=== PATIENT | male | born 1935 | race Caucasian/White ===

== ENCOUNTER 2016-12-26 19:32 | Inpatient (IN) | payer SELFPAY ==
[~2016-12-26] VITALS: Ht 162.6 cm; Wt 104.3 kg
[2016-12-26 19:39] VITALS: BP 132/56
[2016-12-26] MEDS ORDERED: ASPI325T49 PO (19:43)
[2016-12-26] MEDS ORDERED: LISI5TAB18 PO (19:43)
[2016-12-26] MEDS ORDERED: TERA1CAP7 PO (19:43)
--- NOTE | 2016-12-26 19:48 | NUR ---
AMBUATED TO ER BED 6
--- NOTE | 2016-12-26 20:00 | NUR ---
Patient being evaluated by DR. KAY at bedside.
[2016-12-26] MEDS ORDERED: FUROSEMIDE 40 MG/4 ML VIAL IVP SCH (20:10)
--- NOTE | 2016-12-26 20:32 | NUR ---
81Y/M PT. PRESENTS TO ED WITH C/O SOB WITH BLE SWOLLEN. HX. HTN . DENIES N/V/D; SKIN IS PINK/WARM/DRY; AAOX4 WITH EVEN AND STEADY GAIT; LUNGS CLEAR BL; HR EVEN AND REGULAR; PT DENIES ANY FEVER, SOB, OR COUGH AT THIS TIME; C/O CP, PATIENT STATES PAIN OF 7/10 AT THIS TIME; VSS; PATIENT POSITIONED FOR COMFORT; HOB ELEVATED; BEDRAILS UP X2; BED DOWN. ER MD MADE AWARE OF PT STATUS.
[2016-12-26 20:47] LABS: BASOPHILS # (AUTO) 0.4 K/uL (0.00-0.22); EOSINOPHILS # (AUTO) 0.1 K/uL (0-0.4); HEMATOCRIT 42.3 % (36-52); HEMOGLOBIN 14.1 g/dL (12.0-18.0); LYMPHOCYTES # (AUTO) 1.5 K/uL (2.0-11.5); MEAN CORPUSCULAR HEMOGLOBIN 32 pg (27-31); MEAN CORPUSCULAR HGB CONC 33 g/dL (33-37); MEAN CORPUSCULAR VOLUME 96 fL (80-94); MONOCYTES # (AUTO) 0.7 K/uL (0.8-1.0); NEUTROPHILS # (AUTO) 3.5 K/uL (1.8-7.7); PLATELET COUNT (AUTO) 192 K/uL (140-450); RED BLOOD CELL COUNT(AUTO) 4.42 MIL/uL (4.20-6.10); RED CELL DISTRIBUTION WIDTH 12.9 % (11.6-13.7); WHITE BLOOD COUNT (AUTO) 6.2 K/uL (4.8-10.8)
[2016-12-26 21:04] LABS: ANION GAP 11.2 (8-16); CARBON DIOXIDE 28.4 mmol/L (21-32); CHLORIDE 105 mmol/L (98-107); CREATININE 1.2 mg/dL (0.7-1.3); GLUCOSE 116 mg/dL (74-106); POTASSIUM 4.6 mmol/L (3.5-5.1); SODIUM SERUM 140 mmol/L (136-145); UREA NITROGEN, BLOOD 19 mg/dL (7-18)
[2016-12-26 21:11] LABS: ALBUMIN 3.5 g/dL (3.4-5.0); ASPARTATE AMINOTRANSFERASE 21 U/L (15-37); TOTAL BILIRUBIN 0.4 mg/dL (0.0-1.0)
[2016-12-26 22:11] LABS: CREATINE KINASE MB 0.7 ng/mL (0-3.6)
[2016-12-26] MEDS: NACL 0.9% 1,000 ML IV SCH (22:29)
[2016-12-26] MEDS ORDERED: HYDROcodone/APAP 7.5/325 MG 1 TAB PO PRN (22:30)
[2016-12-26] MEDS: TERAZOSIN 1 MG CAP PO SCH (22:30)
[2016-12-26] MEDS ORDERED: DOCUSATE SODIUM 100 MG GELCAP PO PRN (22:30)
[2016-12-26] MEDS ORDERED: LISINOPRIL 5 MG TAB PO SCH (22:30)
[2016-12-26] MEDS ORDERED: ACETAMINOPHEN 325 MG TAB PO PRN (22:30)
[2016-12-26] MEDS ORDERED: MORPHINE SULFATE 2 MG/ML SYR IVP PRN (22:30)
[2016-12-26] MEDS ORDERED: ONDANSETRON 4 MG/2 ML VIAL IM/IVP PRN (22:30)
--- NOTE | 2016-12-26 22:30 | NUR ---
Patient appears to be resting comfortably in bed. Vital Signs within normal limits. Respirations even and unlabored.
[2016-12-26 23:15] LABS: CHOL/HDL RATIO 4.9 (1-4.5); FREE T4 (FREE THYROXINE) 0.92 ng/dL (0.76-1.46); MAGNESIUM 1.9 mg/dL (1.8-2.4); PHOSPHORUS 3.4 mg/dL (2.5-4.9); THYROID STIMULATING HORMONE 2.15 uIU/mL (0.34-3.74)
--- NOTE | 2016-12-26 23:15 | NUR ---
Patient will be admitted to care of DR. VEGA. Admited to TELEMETRY. Will go to [id number]. Belongings list completed. Report to ISAIAS.
--- NOTE | 2016-12-26 23:44 | NUR ---
Admitted from , with chief complaint of SOB, EDEMA LOWER EXTREMITIES 81 y/o ,Male, Appropriate, oriented to call light, bed, phone,television, bathroom, smoking policy, visiting hours, procedures, ID bracelet on. Belongings list checked. PER DAUGHTER AT TIMES HIS FATHER GO TO THE BATHROOM FREQUENTLY. PT AAO AWAKE AT THIS TIME, COOPERATIVE.
[2016-12-26 23:45] LABS: PROTHROMBIN TIME 10.4 secs (10.8-13.4)
[2016-12-26 23:52] VITALS: BP 150/75
--- NOTE | 2016-12-27 00:44 | NUR ---
TALKED TO DR. MEDINA ABOUT SEQUENTIAL SINCE PT HAS EDEMA PER DR. MEDINA PUT SEQUENTIAL BUT MAKE IT LOOSE, SEQUENTIAL IN PLACE AT THIS TIME, PER PT WELL TOLERATED AT THIS TIME, WILL CONTINUE TO OBSERVE
--- NOTE | 2016-12-27 00:50 | NUR ---
NOTED ALSO PURPLISH DISCOLORATION ON LEFT ARM, HANDLE PT GENTLY
--- NOTE | 2016-12-27 01:07 | NUR ---
PER PT ONLY WANT TYLENOL FOR PAIN EVEN PAIN LEVEL 6
--- NOTE | 2016-12-27 01:07 | NUR ---
TALKED WITH DR. MEDINA AND VERIFY THE IVF PER MD JUST [id number]
--- NOTE | 2016-12-27 02:24 | NUR ---
PT SLEEPING AT THIS TIME, DAUGHTER AT BEDSIDE, IVF WELL TOLERATED, NO SOB NOTED.
[2016-12-27] MEDS ORDERED: ALBUTEROL SULFATE/IPRATROPIU 3 ML SOL IH PRN ×2 (03:10→15:50)
[2016-12-27 04:35] VITALS: BP 122/66
--- NOTE | 2016-12-27 04:40 | NUR ---
PT SLEEPING AT THIS TIME, VITAL SIGN STABLE, NO SOB NOTED, DAUGHTER AT BEDSIDE
--- NOTE | 2016-12-27 05:49 | NUR ---
PT SITTING IN BED JUST CAME BACK FROM BATHROOM, PER DAUGHTER SHE FORGOT THAT HE NEED TO GIVE URINE, URINE CUP AT BEDSIDE, WILL COLLECT LATER, NO SOB NOTED.
[2016-12-27 07:22] LABS: HEMATOCRIT 40.6 % (36-52); HEMOGLOBIN 13.5 g/dL (12.0-18.0); MEAN CORPUSCULAR HEMOGLOBIN 32 pg (27-31); MEAN CORPUSCULAR HGB CONC 33 g/dL (33-37); MEAN CORPUSCULAR VOLUME 97 fL (80-94); PLATELET COUNT (AUTO) 173 K/uL (140-450); RED BLOOD CELL COUNT(AUTO) 4.19 MIL/uL (4.20-6.10); RED CELL DISTRIBUTION WIDTH 13.1 % (11.6-13.7); WHITE BLOOD COUNT (AUTO) 5.2 K/uL (4.8-10.8)
--- NOTE | 2016-12-27 07:23 | NUR ---
ENDORSED TO NADIA PT AAO, SITTING IN BED, DAUGHTER AT BEDSIDE,IVF ONGOING WELL TOLERATED, ASKED IF HE CAN GIVEN URINE AT THIS TIME,PER PT HE WILL TRY
--- NOTE | 2016-12-27 07:24 | NUR ---
RECEIVED REPORT FROM SKILLS INSTRUCTOR NURSE AT BEDSIDE FOR CONTINUITY OF CARE. PT IS AWAKE AND ORIENTED. PT'S DAUGHTER IS AT BEDSIDE. INTRODUCED SELF AND UPDATED BOARD. WILL CONTINUE WITH PLAN OF CARE AND MONITOR PT.
[2016-12-27 07:37] LABS: ANION GAP 12.5 (8-16); CARBON DIOXIDE 26.9 mmol/L (21-32); CHLORIDE 107 mmol/L (98-107); CREATININE 1.1 mg/dL (0.7-1.3); GLUCOSE 121 mg/dL (74-106); POTASSIUM 4.4 mmol/L (3.5-5.1); SODIUM SERUM 142 mmol/L (136-145); UREA NITROGEN, BLOOD 22 mg/dL (7-18)
[2016-12-27 08:00] VITALS: BP 126/58
[2016-12-27 08:10] LABS: APPEARANCE,URINE CLEAR (CLEAR); BILIRUBIN,URINE NEGATIVE (NEGATIVE); BLOOD, URINE NEGATIVE (NEGATIVE); COLOR,URINE YELLOW (YELLOW); LEUKOCYTE ESTERASE ,URINE NEGATIVE (NEGATIVE); NITRITE, URINE NEGATIVE (NEGATIVE); UGLUCOSE NEGATIVE (NEGATIVE)
[2016-12-27 08:20] LABS: RBC,URINE 0-5 (RARE) /HPF (0-5); WBC,URINE 0-5 (RARE) /HPF (0-5)
[2016-12-27 08:38] LABS: EOSINOPHILS % (MANUAL) 6 % (0-4); LYMPHOCYTES % (MANUAL) 30 % (20-46); MONOCYTES % (MANUAL) 9 % (5-12)
[2016-12-27] MEDS: TERAZOSIN 1 MG CAP PO SCH (11:45)
--- NOTE | 2016-12-27 11:45 | NUR ---
ADMINISTERED SCHEDULED MEDS TO PT. PT TOLERATED WELL. PT IS SITTING UP IN BED WITH FEET DANGLING AT BEDSIDE. PT DENIES SOB OR PAIN. NO RESPIRATORY DISTRESS NOTED. PT'S DAUGHTER IS AT BEDSIDE. WILL CONTINUE TO MONITOR.
[2016-12-27 12:00] VITALS: BP 125/59
--- NOTE | 2016-12-27 15:00 | NUR ---
PT IN ROOM GETTING US DONE BY TECH. PT'S DAUGHTER IS AT BEDSIDE.
[2016-12-27 16:00] VITALS: BP 125/57
--- NOTE | 2016-12-27 17:23 | NUR ---
PT GOT UP TO USE BATHROOM. AMBULATED WITH STEADY GAIT, STANDBY ASSIST. PT'S DAUGHTER IS AT BEDSIDE. PT HAS NO COMPLAINTS AT THIS TIME. WILL CONTINUE TO MONITOR.
[2016-12-27] MEDS: ALBUTEROL SULFATE/IPRATROPIU 3 ML SOL IH SCH (18:43)
--- NOTE | 2016-12-27 18:45 | NUR ---
PT IS SITTING UP IN BED NOW. RESPIRATORY THERAPIST AT BEDSIDE ADMINISTERING BREATHING TREATMENT. PT'S FAMILY MEMBERS ARE AT BEDSIDE.
--- NOTE | 2016-12-27 18:53 | NUR ---
AT THIS TIME PULSE OX NOT AVAILABLE, NO RESP. DISTRESS NOTE, HHN GIVEN, BS CLEAR HR 74
[2016-12-27] MEDS ORDERED: methylPREDNISolone SS 125 MG/2 ML VIAL IVP SCH (19:05)
--- NOTE | 2016-12-27 19:10 | NUR ---
ENDORSED PT TO RESPITE CARE PROVIDER NURSE AT BEDSIDE FOR CONTINUITY OF CARE. PT IS IN STABLE CONDITION. FAMILY IS AT BEDSIDE.
--- NOTE | 2016-12-27 19:30 | NUR ---
RECEIVED REPORT FROM DAY RN AT BEDSIDE. PATIENT IS AAOX4 ON ROOM AIR, NO SOB OR SIGN OF DISTRESS. IV TO LEFT AC PATENT AND INTACT. SKIN INTACT. PATIENT DENIES PAIN AT THIS TIME, DISCUSSED PLAN OF CARE WITH PATIENT ,PATIENT VERBALIZED UNDERSTANDING. CALL LIGHT WITHIN REACH. WILL CONTINUE TO MONITOR
[2016-12-27 20:00] VITALS: BP 136/61
--- NOTE | 2016-12-27 20:15 | NUR ---
PM MEDS ADMINISTERED, PATIENT TOLERATED WELL, CALL LIGHT WITHIN REACH. WILL CONTINUE TO MONITOR
[2016-12-27] MEDS ORDERED: METOPROLOL 25 MG TAB PO SCH (21:00)
[2016-12-27] MEDS: NACL 0.9% 1,000 ML IV SCH (22:16)
--- NOTE | 2016-12-27 22:30 | NUR ---
PATIENT AMBULATED UP TO RESTROOM, NO SIGN OF DISTRESS, CALL LIGHT WITHIN REACH. WILL CONTINUE TO MONITOR
[2016-12-28] VITALS: BP 156/69
--- NOTE | 2016-12-28 | NUR ---
VITAL SIGNS STABLE, NO SIGN OF DISTRESS, CALL LIGHT WITHIN REACH. WILL CONTINUE TO MONITOR
--- NOTE | 2016-12-28 02:16 | NUR ---
PATIENT SLEEPING, NO SIGN OF DISTRESS, CALL LIGHT WITHIN REACH. WILL CONTINUE TO MONITOR
[2016-12-28 04:00] VITALS: BP 137/63
--- NOTE | 2016-12-28 04:36 | NUR ---
VITAL SIGNS STABLE, NO SIGN OF DISTRESS, CALL LIGHT WITHIN REACH. WILL CONTINUE TO MONITOR
[2016-12-28] MEDS: methylPREDNISolone SS 125 MG/2 ML VIAL IVP SCH ×2 (05:16→13:05)
[2016-12-28] MEDS ORDERED: methylPREDNISolone SS 125 MG/2 ML VIAL ONE (05:23)
[2016-12-28 06:15] LABS: T4 (THYROXINE) 6.1 ug/dL (4.5-12.0)
[2016-12-28 06:27] LABS: BASOPHILS # (AUTO) 0.2 K/uL (0.00-0.22); BASOPHILS % (AUTO) 4.2 % (0.0-2.0); EOSINOPHILS % (AUTO) 0.2 % (0.0-4.0); HEMATOCRIT 42.3 % (36-52); HEMOGLOBIN 13.8 g/dL (12.0-18.0); LYMPHOCYTES # (AUTO) 0.9 K/uL (2.0-11.5); LYMPHOCYTES % (AUTO) 17.1 % (20.5-51.1); MEAN CORPUSCULAR HEMOGLOBIN 32 pg (27-31); MEAN CORPUSCULAR HGB CONC 33 g/dL (33-37); MEAN CORPUSCULAR VOLUME 97 fL (80-94); MONOCYTES % (AUTO) 0.8 % (1.7-9.3); NEUTROPHILS # (AUTO) 4.2 K/uL (1.8-7.7); NEUTROPHILS % (AUTO) 77.7 % (42.2-75.2); PLATELET COUNT (AUTO) 180 K/uL (140-450); RED BLOOD CELL COUNT(AUTO) 4.36 MIL/uL (4.20-6.10); RED CELL DISTRIBUTION WIDTH 12.8 % (11.6-13.7); WHITE BLOOD COUNT (AUTO) 5.3 K/uL (4.8-10.8)
[2016-12-28 06:38] LABS: ANION GAP 10.4 (8-16); CHLORIDE 107 mmol/L (98-107); GLUCOSE 180 mg/dL (74-106); POTASSIUM 4.4 mmol/L (3.5-5.1); SODIUM SERUM 140 mmol/L (136-145)
--- NOTE | 2016-12-28 07:16 | NUR ---
ENDORSED PATIENT TO DAY RN AT BEDSIDE, PATIENT IN STABLE CONDITION
--- NOTE | 2016-12-28 07:17 | NUR ---
RECEIVED REPORT FROM DIKE SUPERVISOR NURSE AT BEDSIDE FOR CONTINUITY OF CARE. PT IS AWAKE AND ORIENTED. INTRODUCED SELF AND UPDATED BOARD. PT IV IS ON LEFT FA 20G NS INFUSING @40ML/HR. SKIN IS WARM AND DRY. PT IS ON ROOM AIR. WITH O2 SAT AT 97%. RR 20. PT DENIES SOB. NO RESPIRATORY DISTRESS NOTED. WILL CONTINUE TO MONITOR.
[2016-12-28] MEDS: ALBUTEROL SULFATE/IPRATROPIU 3 ML SOL IH SCH ×2 (07:20→12:00)
[2016-12-28 07:25] LABS: MAGNESIUM 1.7 mg/dL (1.8-2.4); PHOSPHORUS 2.7 mg/dL (2.5-4.9); UREA NITROGEN, BLOOD 19 mg/dL (7-18)
[2016-12-28 08:00] VITALS: BP 139/75
[2016-12-28] MEDS: TERAZOSIN 1 MG CAP PO SCH (08:56)
--- NOTE | 2016-12-28 08:57 | NUR ---
ADMINISTERED SCHEDULED MEDS. PT TOLERATED WELL. PT IS SITTING UP AT EDGE OF BED. PT DENIES CHEST PAIN, SOB, OR RESPIRATORY DISTRESS. PT'S DAUGHTER IS AT BEDSIDE. PT HAS NO COMPLAINTS AT THIS TIME. WILL CONTINUE TO MONITOR.
[2016-12-28] MEDS ORDERED: ATORVASTATIN 20 MG TAB PO SCH (09:00)
[2016-12-28] MEDS ORDERED: ASPIRIN 81 MG TAB.CHEW PO SCH (09:00)
[2016-12-28] MEDS ORDERED: FUROSEMIDE 20 MG TAB PO SCH (09:00)
[2016-12-28] MEDS ORDERED: LOSARTAN 25 MG TAB PO SCH (09:00)
[2016-12-28 12:00] VITALS: BP 127/71
--- NOTE | 2016-12-28 12:25 | NUR ---
CHECKED ON PT IN ROOM. PT IS GETTING BREATHING TREATMENT BY RT RIGHT NOW. PT'S DAUGHTER IS AT BEDSIDE.
--- NOTE | 2016-12-28 15:45 | NUR ---
CHECKED ON PT IN ROOM. PT IS WATCHING TV AND SITTING UP AT EDGE OF BED. DENIES SOB OR DIFFICULTY BREATHING. PT IS USING INCENTIVE SPIROMETER DIRECTED. DAUGHTER IS STILL AT BEDSIDE.
[2016-12-28 16:00] VITALS: BP 139/62
[2016-12-28] MEDS ORDERED: ATOR20TA40 PO (17:35)
[2016-12-28] MEDS ORDERED: LOSA25TA1 PO (17:35)
[2016-12-28] MEDS ORDERED: FURO20TA8 PO (17:35)
[2016-12-28] MEDS ORDERED: OMEP20TA56 PO (17:40)
[2016-12-28] MEDS ORDERED: METH4TAB1 PO (17:49)
--- NOTE | 2016-12-28 19:20 | NUR ---
PT D/C TO GO HOME. D/C INSTRUCTIONS AND FORMS SIGNED BY PT. REMOVED IV CATHETER FROM LEFT FA.IV CATHETER TIP INTACT. APPLIED PRESSURE TO SITE. NO BLEEDING NOTED. REMOVED ID BANDS AND TELE MONITOR. PT DRESSED IN CLOTHES AND LEFT WITH ALL PERSONAL BELONGINGS. PT LEFT VIA WHEELCHAIR ACCOMPANIED BY CLINIC OFFICE COORDINATOR AND DAUGHTER. PT LEFT IN STABLE CONDITION.
[2016-12-29] MEDS ORDERED: methylPREDNISolone SS 40 MG/ML VIAL IVP SCH (06:00)
== END 2016-12-28 19:20 | disposition home or self-care (01) | DRG 205 ==
LOC: MED 19:32 → MTU 21:33
PROVIDERS: ADMIT Family Medicine Sports Medicine; ATTEND Family Medicine Sports Medicine
DX: M94.0 Chondrocostal junction syndrome [Tietze] (principal); J96.00 Acute respiratory failure, unspecified whether with hypoxia or hypercapnia; I50.40 Unspecified combined systolic (congestive) and diastolic (congestive) heart failure; J44.1 Chronic obstructive pulmonary disease with (acute) exacerbation; I11.0 Hypertensive heart disease with heart failure; K21.9 Gastro-esophageal reflux disease without esophagitis; E78.5 Hyperlipidemia, unspecified; E66.01 Morbid (severe) obesity due to excess calories; K59.00 Constipation, unspecified; N40.0 Benign prostatic hyperplasia without lower urinary tract symptoms; E78.00 Pure hypercholesterolemia, unspecified; Z68.39 Body mass index [BMI] 39.0-39.9, adult; Z85.820 Personal history of malignant melanoma of skin
CPT/HCPCS: 36415; 36600; 71010; 80048; 80053; 81001; 82550; 82553; 82803; 83036; 83735; 83880; 84100; 84436; 84439; 84443; 84479; 84484; 85025; 85610; 85730; 87081; 93005; 93925; 93970; 94640; 96374; 99285; J1644; J1940; J2930; J7030; J7620; Q0092